=== PATIENT | male | born 1990 | race Two or more races ===

== ENCOUNTER 2023-05-25 10:29 | Emergency (ER) | payer OTHER | END 2023-05-25 11:42 | disposition home or self-care (01) | LOC: LL.ED 10:29 | DX: H61.23 Impacted cerumen, bilateral (principal); Z91.011 Allergy to milk products; Z91.030 Bee allergy status; Z91.018 Allergy to other foods | CPT/HCPCS: 69209; 99282; 99283 ==

== ENCOUNTER 2023-07-03 18:25 | Emergency (ER) | payer OTHER ==
[2023-07-03] MEDS ORDERED: Diphtheria,Pertussis(Acell),Tetanus Vaccine 0.5 ML Syringe IM ONE (19:20)
== END 2023-07-03 19:57 | disposition home or self-care (01) ==
LOC: LL.ED 18:25
DX: S61.412A Laceration without foreign body of left hand, initial encounter (principal); F17.210 Nicotine dependence, cigarettes, uncomplicated; Z23 Encounter for immunization; Z91.030 Bee allergy status; Z91.018 Allergy to other foods; Z91.011 Allergy to milk products; W26.8XXA Contact with other sharp object(s), not elsewhere classified, initial encounter; Y92.89 Other specified places as the place of occurrence of the external cause; Y99.0 Civilian activity done for income or pay
CPT/HCPCS: 12001; 90471; 90715; 99282-25; 99283